=== PATIENT | female | born 1985 | race Caucasian/White ===

== ENCOUNTER 2017-07-18 16:33 | Emergency (ER) | payer SELFPAY ==
[2017-07-21 21:54] VITALS: BMI 24.0
== END 2017-07-18 18:50 | disposition home or self-care (01) ==
LOC: D.ER 16:33
DX: O36.4XX0 Maternal care for intrauterine death, not applicable or unspecified (principal); Z3A.20 20 weeks gestation of pregnancy

== ENCOUNTER 2017-07-21 20:54 | Inpatient (IN) | payer SELFPAY ==
[~2017-07-21] VITALS: Ht 162.6 cm; Wt 63.5 kg
[2017-07-21 21:54] VITALS: BP 111/56; Ht 162.6 cm; Wt 63.5 kg
[2017-07-21 22:36] LABS: APPEARANCE HAZY (CLEAR); BACTERIA MANY /hpf (NONE SEEN); BILIRUBIN NEGATIVE (NEGATIVE); COLOR YELLOW (YELLOW); EPITHELIAL CELLS 0-5 /hpf (0-5); GLUCOSE NEGATIVE (NEGATIVE); KETONE NEGATIVE (NEGATIVE); LEUKOCYTE ESTERASE 2+ (NEGATIVE); NITRITE NEGATIVE (NEGATIVE); PROTEIN NEGATIVE (NEGATIVE); RED CELLS - URINE 0-5 /hpf (0-5); UROBILINOGEN NORMAL (NORMAL); WHITE CELLS - URINE >50 /hpf (0-5)
[2017-07-21 22:37] LABS: MUCUS <1+ /lpf (NONE SEEN)
[2017-07-21 22:41] LABS: UDS - AMPHET POSITIVE QUAL (NEGATIVE); UDS - BARB NEGATIVE QUAL (NEGATIVE); UDS - BENZO NEGATIVE QUAL (NEGATIVE); UDS - COCAINE NEGATIVE QUAL (NEGATIVE); UDS - METH NEGATIVE QUAL (NEGATIVE); UDS - OPIATE NEGATIVE QUAL (NEGATIVE); UDS - PCP NEGATIVE QUAL (NEGATIVE); UDS - THC POSITIVE QUAL (NEGATIVE)
[2017-07-21 23:32] LABS: HEMATOCRIT 33.9 % (36.0-48.0); HEMOGLOBIN 11.8 g/dL (12-16); MCH 31.5 pg (26.0-34.0); MCHC 34.8 g/dL (31.0-37.0); MCV 90.4 fL (80.0-100.0); MEAN PLATELET VOLUME 10.1 fL (7.4-10.4); RBC 3.75 10x6/uL (4.00-5.40); RDW 13.7 % (11.5-14.5); WBC 8.3 10x3/uL (4.8-10.8)
[2017-07-23 07:25] LABS: RAPID PLASMA REAGIN Non Reactive (Non Reactive)
[2017-07-23 11:17] LABS: HEPATITIS C ANTIBODY <0.1 (0.0-0.9)
[2017-07-23 14:21] LABS: RUBELLA IGG 1.59 index (Immune >0.99)
[2017-07-23 19:35] VITALS: BP 93/56
--- NOTE | 2017-07-23 19:35 | NUR ---
RN TO PT BS FOR DANI. SEE CPN FOR FULL PT CHARTING FOR SHIFT.
--- NOTE | 2017-07-24 11:00 | NUR ---
pt resting in bed with infant. states that she has a headache but does not want ibuprofen at this time. sign other at bedside.
[2017-07-24 12:39] LABS: HEMOGLOBIN 11.4 g/dL (12-16); MCH 31.1 pg (26.0-34.0); MCHC 34.5 g/dL (31.0-37.0); MCV 89.9 fL (80.0-100.0); MEAN PLATELET VOLUME 9.3 fL (7.4-10.4); RBC 3.67 10x6/uL (4.00-5.40); RDW 13.3 % (11.5-14.5); WBC 14.5 10x3/uL (4.8-10.8)
--- NOTE | 2017-07-24 17:45 | NUR ---
FUNDUS IS MIDLINE ABOVE PUBIC BONE AND FIRM.
--- NOTE | 2017-07-24 17:45 | NUR ---
SAIGE QUEVEDO FROM THE RESIDENT ASSISTANT'S OFFICE NOTIFIED. MASSIMO NOTIFIED, WITH REF# [id number].
--- NOTE | 2017-07-24 17:50 | NUR ---
PT HAD EPIDURAL AND IS STILL NUMB FROM UMBILICUS DOWN
[2017-07-24 18:08] VITALS: BP 98/55
--- NOTE | 2017-07-24 18:10 | NUR ---
RECEIVED FROM RECOVERY POST D&C. DROWSY BUT AROUSES EASILY. FALLS BACK TO SLEEP WHEN QUESTIONS ARE NOT BEING ASKED. IV LR INFUSING INTO LEFT WRIST. PLACED ON ALARIS PUMP AT 125 ML/HR. DEONDRE WAS DC'D IN RECOVERY ROOM. U/5 FIRM MIDLINE, RUBRA SCANT, PERIPAD IN PLACE. SCD'S ON AND PLACED ON PUMP AT THIS TIME. UNABLE TO MOVE LOWER EXTREMETIES AT THIS TIME. DESIRES PO FLUIDS. SIDERAILS UP X 2, CALL LIGHT IN REACH. VISITORS IN WAITING ROOM WAITING TO COME VISIT.
[2017-07-24 18:30] VITALS: BP 94/53
--- NOTE | 2017-07-24 18:30 | NUR ---
DROWSY, AROUSES EASILY, U/5 MIDLINE, RUBRA SMALL- CLEAN VAUGHN-PADS X 2 PLACED. VISITOR IN ROOM. WAITING FOR MD TO RETURN CALL TO OBTAIN ORDERS. CLEAR LIQUID DIET AT BEDSIDE. VISITOR IN ROOM. SIDE RAILS UP X 2, CALL LIGHT IN REACH.
[2017-07-24 18:42] VITALS: BP 91/50
--- NOTE | 2017-07-24 18:45 | NUR ---
U/5 FIRM MIDLINE. PERIPADS CLEANED. DROWSY, AROUSES EASILY. VISITOR IN ROOM. CLEAN LIQUID DIET AT BEDSIDE. WAITING ON RETURN OF MD CALL FOR MD POSTOP ORDERS. SIDERAILS UP X 2, CALL LIGHT IN REACH.
[2017-07-24 18:57] VITALS: BP 87/52
[2017-07-24 19:12] VITALS: BP 91/55
--- NOTE | 2017-07-24 19:24 | NUR ---
DR NARANJO HAS NOT RETURNED ONE PAGE AND TWO PHONE CALLS WITH VOICEMAIL LEFT ON HIS CELL PHONE. CALLED ALTERNATE PHONE NUMBER AND RECEIVED VOICEMAIL. LEFT MESSAGE TO HAVE MD CALL TO GIVE POSTOP ORDERS. PRESCRIPTIONS ARE ON CHART.
[2017-07-24 19:27] VITALS: BP 93/55
--- NOTE | 2017-07-24 19:27 | NUR ---
NOTE WRITTEN AT 1927 BY THIS NURSE. SCDS ON AND PUMP FUNCTIONAL.
--- NOTE | 2017-07-24 19:27 | NUR ---
PT. SLEEPING AT PRESENT. AROUSES TO VERBAL COMMAND. PT. RELATES THAT SHE IS PAIN FREE. FUNDUS FIRM U/2 AND NO LOCHIA NOTED. BREATH SOUNDS CLEAR AND BOWEL SOUNDS AUDIBLE. MOVING ALL EXTREMITIES AT WILL. IV OF LR INFUSING AT 125CC/HR. IN LT. FOREARM. NO REDNESS NOR EDEMA NOTED AT IV SITE. PT. SITTING UP AND CONSUMED LIQUID DIES. L[place]ON [place] DRINK SERVED. INFORMED PT. THAT WHEN MD CALLED, WOULD INQUIRE ABOUT PROGRESSING DIET. INFORMED PT. THAT MD STATED THAT SHE COULD DISCHARGE AFTER EATING AND VOIDING IF SHE DESIRED. PT. REPLIED THAT SHE WOULD PROBABLY JUST STAY "SO I CAN SLEEP". LIGHTS DIMMED IN ROOM PER PT. REQUEST. SKIN WARM AND DRY AND PT. ORIENTED X3.
[2017-07-24] MEDS ORDERED: HYDROCODON-ACE1 EAC7 PO (20:01)
[2017-07-24] MEDS ORDERED: CYTOTEC200 MCG PO (20:02)
--- NOTE | 2017-07-24 20:13 | NUR ---
DR. NARANJO CALLED FOR ORDERS ON PT. AND CLARIFICATION.
--- NOTE | 2017-07-24 20:35 | NUR ---
FEMALE TO DESK STATING THAT PT. IS READY TO COMPLETE PAPERWORK AND ALSO TO SEE INFANT AGAIN. INFORMED WOULD BE TO ROOM EBATRIS.
--- NOTE | 2017-07-24 20:40 | NUR ---
INTO ROOM WITH PAPERWORK TO COMPLETE FOR DISPOSITION OF FETUS. BRITTANI BIRCH ALSO IN ROOM WITH PT. , WELL ANOTHER FEMALE. MS. BIRCH STATES SHE IS 'S GRANDMOTHER. INFORMED PT. OF PAPERWORK THAT NEEDS COMPLETED AND PT. AGREEABLE.
--- NOTE | 2017-07-24 20:41 | NUR ---
REVIEWED GUIDELINES FROM STATE REGARDING CERTIFICATE OF . POLICY WAS IN HAND OF THIS NURSE AND EXACT STATEMENT READ FROM POLICY REGARDING WEIGHT REQUIREMENT FOR CERTIFICATE OF . INFORMED OF WEIGH REQUIREMENT OF 350 GM AND THE WEIGHT OF HER OF 260 GM. BOTH PATIENT AND GRANDMOTHER TO INFANT STATED UNDERSTANDING. ALSO INFORMED IF THAT DESIRED THE COULD BE REPORTS TO INCLUDE IN A SPONTANEOUS DATABASE. PT. DECLINED FOR THAT REPORTING.
--- NOTE | 2017-07-24 20:44 | NUR ---
REVIEWED WITH PT. IF SHE DESIRES AUTOPSY . PT. DISCUSSED WITH BRITTANI EYAL AND DECIDED THAT SHE DID NOT WANT AUTOPSY AND SIGNED REFLECTING THAT SHE DECLINED.
--- NOTE | 2017-07-24 20:50 | NUR ---
PT. AWAKE AND ORIENTED. VIEWED FETUS REQUESTED. FEMALE THAT IDENTIFIES HERSELF THE GRANDMOTHER TO THE , IN ROOM AND REQUEST THAT [facility] BE GIVEN HER NAME AND CONTACT NUMBER. PT. STATES VERBAL APPROVAL REGARDING [facility] BEING GIVEN BRITTANI BIRCH NAME AND CONTACT NUMBER OF [phone]. BRITTANI BIRCH ALSO IN ROOM WHEN ALL CONSENTS AND DOCUMENTS REVIEWED WITH PT. BOTH PT. AND EYAL DENIED HAVING ANY QUESTIONS.
--- NOTE | 2017-07-24 20:58 | NUR ---
MS. BIRCH TO DESK AND STATES PT. DESIRES TO DISCHARGE. PT. ASKED THAT INFANT REMAIN IN ROOM AT THIS TIME.
--- NOTE | 2017-07-24 21:00 | NUR ---
IV DISCONTINUED WITH INTACT CATH. TIP NOTED PER Briseida MARCOS RN . PT. UP TO VOID. CHERI JOHNSON MOD. NOTED. VOIDED WITHOUT DIFFICULTY. PT. STATES THAT SHE DESIRES TO SHOWER. LINENS PROVIDED.
--- NOTE | 2017-07-24 21:04 | NUR ---
[facility] CALLED AND INFORMED OF NEED TO HUMAN RESOURCES TRAINING MANAGER INFANT AND EMERGENCY SERVICES DISPATCHER OF BRITTANI BIRCH. "ALEXA" AT THE HOME STATES THEY HAVE ALREADY BEEN IN CONTACT WITH EYAL.
--- NOTE | 2017-07-24 21:06 | NUR ---
STATE INSPECTOR CALLED AND INFORMED HOME IS [facility]NR[facility]TE AND REQUESTED HER TO REVIEW PAPERWORK COMPLETED . Mando MACKEY STATES SHE HAS TO GO TO [facility] AND WILL COME TO UNIT THEREAFTER.
--- NOTE | 2017-07-24 21:10 | NUR ---
DR. NARANJO CALLED UNIT AND INFORMED THAT PT DESIRES TO DISCHARGE. MD STATES TO PROCEDE WITH DISCHARGE AND TO INFORM PT. TO CALL OFFICE ON WEDNESDAY FOR APPT. IN 1 WEEK.
--- NOTE | 2017-07-24 21:26 | NUR ---
WRITTEN AND VERBAL DISCHARGE INSTRUCTIONS GIVEN TO PT. PT. STATES UNDERSTANDING TO ALL. PT.INSTRUCTED THAT SHE NEEDS TO CALL OFFICE ON WEDNESDAY FOR RTC. PT. STATES THAT SHE WILL CALL. Fidencio BIRCH INDICATES THAT PT. WILL GO HOME WITH HER.
--- NOTE | 2017-07-24 21:27 | NUR ---
SCRIPTS GIVEN TO PT. WITH DISCHARGE INSTRUCTIONS. (CYTOTEC AND MELDRIM)
--- NOTE | 2017-07-24 21:34 | NUR ---
[facility] "ALEXA" IN ROOM TALKING WITH FAMILY. PRESENTLY IN ROOM WELL. PT. CONTINUES TO LOOK AT INFANT.
--- NOTE | 2017-07-24 21:39 | NUR ---
BAG WORKER ON UNIT REVIEWING PAPERWORK.
--- NOTE | 2017-07-24 21:40 | NUR ---
PT. UP IN ROOM DRESSED FOR DISCHARGE. PT. DENIES ANY QUESTIONS.
--- NOTE | 2017-07-24 21:42 | NUR ---
PT. OFF UNIT VIA WHEELCHAIR TO FRONT ENTRANCE. PT. WITH CIGARETTE IN HAND AND LIGHTS PRIOR TO GETTING WHEELCHAIR OUT OF FRONT ENTRANCE. [facility]ANI [facility] IN FRONT OF HOSPITAL AND PT. ESCORTED TO CAR. GAIT STEADY.
--- NOTE | 2017-07-26 09:55 | OP ---
PATIENT NAME: ED COHEN MEDICAL RECORD: [id number] LOCATION:[id number] ADMISSION DATE:07/21/17 SURGEON: MAT NARANJO MD DATE OF OPERATION: 07/24/2017 PREOPERATIVE DIAGNOSES: 1. Retained placental products. 2. Status post vaginal delivery of a 20-week demise. POSTOPERATIVE DIAGNOSES: 1. Retained placental products. 2. Status post vaginal delivery of a 20-week demise. PROCEDURE: Suction and evacuation with curettage. SURGEON: Mat Naranjo MD. MEAL MILLER: Mickey Rebolledo. ANESTHESIA: Continuous lumbar epidural. FINDINGS: Cervix is dilated. Minimal bleeding at initiation of procedure, copious amounts of products of conception and placental tissue removed. SPECIMEN: Disposition pathology. ESTIMATED BLOOD LOSS: 250 cc. FLUIDS: 400 cc of lactated Ringer's. URINE OUTPUT: Quantity sufficient with cath prior to the procedure, Dorsey discontinued at initiation of procedure. COMPLICATIONS: None. DISPOSITION: Recovery room and then labor and delivery. INDICATIONS: The patient is a 31-year-old female, who underwent medically induced for demise at 20 weeks. The patient was given misoprostol immediately following delivery without delivery of the placenta in greater than 1 hour. The patient was consented for removal in the operating room to include, but not limited to dilation and evacuation and curettage. The patient acknowledged all risks and benefits prior to the procedure. DESCRIPTION OF PROCEDURE: After informed consent was assured, the patient was taken to the operating room where anesthetic is assessed and found to be adequate and she was placed in the [facility]. The patient was now prepped and draped. A speculum introduced in the vagina and a #11 curved suction curette was gently passed to the fundus and suction applied. Several passes removed products of conception and placental tissue. The patient now has a sharp curettage performed until cry was obtained throughout. The small portion of adhesed membrane was freed with curettage. The single tooth tenaculum, which was used to steady the cervix during this procedure was removed and adequate hemostasis was noted. Minimal bleeding was noted at the close of this procedure. Bimanual exam reveals involuting and firm uterus. Sponge, lap OPERATIVE REPORT [id number] ED COHEN and needle count was correct times 2. The patient was taken down from the stirrups, taken to the recovery room. The patient will be observed on labor and delivery and discharged when criteria are met. TRANSINT:[id number] Voice Confirmation ID: [id number] DOCUMENT ID: [id number] MAT NARANJO MD at 0955 CC: [id number] DICTATION DATE: 07/24/171736 GOLD BURNISHER: 07/24/17 2325 DIS IN 07/24/17 [facility] [address] [id number]
[2017-07-26 13:11] LABS: HGB SOLUBILITY (SICKLE SCREEN) Negative (Negative)
[2017-07-28 04:16] LABS: CHLAMYDIA TRACHOMATIS, NAA Negative (Negative)
== END 2017-07-24 21:32 | disposition home or self-care (01) | DRG 767 ==
LOC: D.LD 20:54
PROVIDERS: Anesthesiology; ADMIT Obstetrics & Gynecology
PROC: 10E0XZZ Delivery of Products of Conception, External Approach (ICD-10-PCS; 2017-07-24)
PROC: 10D17ZZ Extraction of Products of Conception, Retained, Via Natural or Artificial Opening (ICD-10-PCS; principal; 2017-07-24 16:30)
DX: O36.4XX0 Maternal care for intrauterine death, not applicable or unspecified (principal); O99.322 Drug use complicating pregnancy, second trimester; O23.592 Infection of other part of genital tract in pregnancy, second trimester; Z3A.20 20 weeks gestation of pregnancy; Z37.1 Single stillbirth; F15.90 Other stimulant use, unspecified, uncomplicated; F12.90 Cannabis use, unspecified, uncomplicated; O99.332 Smoking (tobacco) complicating pregnancy, second trimester